=== PATIENT | male | born 1965 | race Caucasian/White ===

== ENCOUNTER 2016-11-12 16:20 | Emergency (ER) | payer OTHER ==
[~2016-11-12 16:20] MED LIST: LEVAQUIN750 MG PO
== END 2016-11-12 18:53 | disposition home or self-care (01) ==
LOC: ER 16:20
DX: J20.9 Acute bronchitis, unspecified (principal); J44.9 Chronic obstructive pulmonary disease, unspecified; I25.10 Atherosclerotic heart disease of native coronary artery without angina pectoris; E11.9 Type 2 diabetes mellitus without complications; F17.210 Nicotine dependence, cigarettes, uncomplicated
CPT/HCPCS: 36415; 51701; 96361; 96374; G0480; J1885